=== PATIENT | female | born 1990 | race Hispanic/Latino ===

== ENCOUNTER 2021-04-07 00:10 | Emergency (ER) | payer MEDICAID, OTHER ==
[~2021-04-07] VITALS: Ht 162.6 cm; Wt 99.1 kg
[~2021-04-07 00:10] MED LIST: PREN1TAB89 PO
[2021-04-07 02:47] LABS: APPEARANCE,URINE CLEAR (CLEAR); BILIRUBIN,URINE NEGATIVE (NEGATIVE); COLOR,URINE YELLOW (YELLOW); GLUCOSE, URINE (UA) NEGATIVE (NEGATIVE); KETONES,URINE NEGATIVE (NEGATIVE); LEUKOCYTE ESTERASE ,URINE NEGATIVE (NEGATIVE); NITRATE,URINE NEGATIVE (NEGATIVE); OCCULT BLOOD,URINE NEGATIVE (NEGATIVE); PROTEIN,URINE NEGATIVE (NEGATIVE)
[2021-04-07 02:49] LABS: HCG,QUAL RESULT NEGATIVE (NEGATIVE)
[2021-04-07 02:54] LABS: BACTERIA,URINE Rare /HPF (None Seen); RBC,URINE 0-1 /HPF (0-1); SQUAMOUS EPITHELIAL CELL,UR 0-2 /HPF (0-2); WBC,URINE 0-1 /HPF (0-1)
[2021-04-07 04:42] VITALS: BP 108/66
[2021-04-07] MEDS ORDERED: IBUPROFEN 600 MG TABLET PO ONE (05:00)
[2021-04-07] MEDS ORDERED: IBUP-2070 PO (05:05)
== END 2021-04-07 05:15 | disposition home or self-care (01) ==
LOC: EDH 00:14
DX: D25.9 Leiomyoma of uterus, unspecified (principal); Z90.49 Acquired absence of other specified parts of digestive tract
CPT/HCPCS: 76856; 81001; 81025; 87486; 87797

== ENCOUNTER 2022-05-06 20:38 | Emergency (ER) | payer OTHER ==
[~2022-05-06] VITALS: Ht 162.6 cm; Wt 100.7 kg
[~2022-05-06 20:38] MED LIST changes: +IBUP-2070 PO
[2022-05-06 20:47] VITALS: BP 127/69
[2022-05-06] MEDS ORDERED: IBUPROFEN 800 MG TAB ONE (22:36)
[2022-05-06] MEDS ORDERED: IBUPROFEN 800 MG TAB PO ONE (23:00)
== END 2022-05-06 22:54 | disposition home or self-care (01) ==
LOC: EDH 20:38
DX: M25.572 Pain in left ankle and joints of left foot (principal); Z90.49 Acquired absence of other specified parts of digestive tract; Z79.1 Long term (current) use of non-steroidal anti-inflammatories (NSAID); Z79.899 Other long term (current) drug therapy
CPT/HCPCS: 73600

== ENCOUNTER 2022-11-19 20:13 | Emergency (ER) | payer OTHER ==
[~2022-11-19] VITALS: Ht 162.6 cm; Wt 99.8 kg
[2022-11-19 20:52] VITALS: BP 118/65; PULSE 78; RESP 18; O2SAT 98
[2022-11-19] MEDS ORDERED: AMOX/CLAV 875/125MG TAB PO ONE (21:00)
[2022-11-19] MEDS ORDERED: DIPH,PERTUSS(ACELL),TET VAC/PF 0.5 ML VIAL IM ONE (21:00)
[2022-11-19] MEDS ORDERED: AMOX1TAB16 PO (21:06)
[2022-11-19] MEDS ORDERED: MUPI22OI2 TP (21:06)
[2022-11-19] MEDS ORDERED: BACITRACIN 1 EACH PACKET TP ONE (21:30)
[2022-11-19] MEDS ORDERED: BACITRACIN 28.4 GM OINT TP ONE (21:30)
== END 2022-11-19 21:33 | disposition home or self-care (01) ==
LOC: EDH 20:13
DX: S81.852A Open bite, left lower leg, initial encounter (principal); Z79.899 Other long term (current) drug therapy; Z90.49 Acquired absence of other specified parts of digestive tract; Z98.890 Other specified postprocedural states; W54.0XXA Bitten by dog, initial encounter; Y93.89 Activity, other specified; Y92.89 Other specified places as the place of occurrence of the external cause; Y99.8 Other external cause status
CPT/HCPCS: 90471; 90715

== ENCOUNTER 2023-07-22 23:03 | Emergency (ER) | payer OTHER ==
[~2023-07-22] VITALS: Ht 162.6 cm; Wt 104.3 kg
[~2023-07-22 23:03] MED LIST changes: +AMOX1TAB16 PO; +MUPI22OI2 TP
[2023-07-22 23:22] VITALS: BP 115/60; PULSE 71; RESP 16; O2SAT 98
[2023-07-23] MEDS: FAMOTIDINE 20MG VIAL IV ONE (00:19)
[2023-07-23] MEDS: ONDANSETRON 4MG INJ IVP ONE (00:20)
[2023-07-23 01:34] LABS: BASOPHILS # (AUTO) 0.09 K/uL (0.00-0.20); BASOPHILS % (AUTO) 0.7 % (0.0-5.0); EOSINOPHILS # (AUTO) 0.32 K/uL (0.00-0.70); EOSINOPHILS % (AUTO) 2.7 % (0.0-8.0); HEMATOCRIT 39.9 % (36-48); IMMATURE GRANULOCYTE ABSOLUTE 0.06 K/uL (0-1); LYMPHOCYTES % (AUTO) 33.4 % (21.0-51.0); MEAN CORPUSCULAR HEMOGLOBIN 28.3 pg (27.0-33.0); MEAN CORPUSCULAR HGB CONC 31.1 g/dL (32.0-36.0); MEAN CORPUSCULAR VOLUME 91.1 fL (79-99); MONOCYTES # (AUTO) 0.8 K/uL (0.1-1.0); MONOCYTES % (AUTO) 6.9 % (3.0-13.0); NEUTROPHILS # (AUTO) 6.7 K/uL (1.8-7.7); NEUTROPHILS % (AUTO) 55.8 % (40.0-77.0); PLATELET COUNT (AUTO) 275 K/uL (130-400); RED BLOOD CELL COUNT(AUTO) 4.38 MIL/uL (4.00-5.50); WHITE BLOOD COUNT (AUTO) 12.1 K/uL (4.8-10.8)
[2023-07-23 01:45] LABS: CREATININE 0.9 mg/dL (0.5-1.0); POTASSIUM 3.7 mmol/L (3.5-5.1)
[2023-07-23 01:51] LABS: ALBUMIN 3.2 g/dL (3.5-5.0); BILIRUBIN,TOTAL 0.4 mg/dL (0.2-1.0); TOTAL PROTEIN, SERUM 7.5 g/dL (6.0-8.3)
[2023-07-23] MEDS ORDERED: FAMO-136 PO (02:18)
[2023-07-23] MEDS ORDERED: ONDA-243 PO (02:18)
[2023-07-23] MEDS: KETOROLAC 10 MG TABLET PO SCH (02:23)
[2023-07-23] MEDS: ONDANSETRON ODT 4MG TAB SL ONE (02:23)
[2023-07-23] MEDS: FAMOTIDINE 20MG TAB PO ONE (02:23)
== END 2023-07-23 02:37 | disposition home or self-care (01) ==
LOC: EDH 23:03
DX: K29.70 Gastritis, unspecified, without bleeding (principal); Z79.899 Other long term (current) drug therapy; Z90.49 Acquired absence of other specified parts of digestive tract; Z98.890 Other specified postprocedural states
CPT/HCPCS: 36415; 80053; 83690; 84703; 85025

== ENCOUNTER 2023-08-23 23:31 | Emergency (ER) | payer OTHER ==
[~2023-08-23] VITALS: Ht 152.4 cm; Wt 99.8 kg
[~2023-08-23 23:31] MED LIST changes: +FAMO-136 PO; +ONDA-243 PO
[2023-08-23 23:34] VITALS: BP 135/80; PULSE 78; RESP 18
[2023-08-24] MEDS: HYDROXYZINE 25 MG TABLET PO ONE (00:31)
[2023-08-24 00:43] LABS: BASOPHILS # (AUTO) 0.08 K/uL (0.00-0.20); BASOPHILS % (AUTO) 0.6 % (0.0-5.0); EOSINOPHILS % (AUTO) 4.8 % (0.0-8.0); HEMATOCRIT 40.5 % (36-48); IMMATURE GRANULOCYTE ABSOLUTE 0.06 K/uL (0-1); LYMPHOCYTES # (AUTO) 3.5 K/uL (1.0-4.8); LYMPHOCYTES % (AUTO) 28.2 % (21.0-51.0); MEAN CORPUSCULAR HEMOGLOBIN 28.9 pg (27.0-33.0); MEAN CORPUSCULAR HGB CONC 31.4 g/dL (32.0-36.0); MONOCYTES % (AUTO) 8.3 % (3.0-13.0); NEUTROPHILS # (AUTO) 7.2 K/uL (1.8-7.7); NEUTROPHILS % (AUTO) 57.6 % (40.0-77.0); PLATELET COUNT (AUTO) 266 K/uL (130-400); RED CELL DISTRIBUTION WIDTH 13.1 % (11.0-15.5); WHITE BLOOD COUNT (AUTO) 12.4 K/uL (4.8-10.8)
[2023-08-24 00:47] LABS: CREATININE 0.9 mg/dL (0.5-1.0); POTASSIUM 4.4 mmol/L (3.5-5.1)
[2023-08-24] MEDS ORDERED: HYDR-3421 PO (01:21)
[2023-08-24] MEDS ORDERED: MUPI15C TP (01:21)
== END 2023-08-24 01:49 | disposition home or self-care (01) ==
LOC: EDH 23:31
DX: L02.416 Cutaneous abscess of left lower limb (principal); L29.9 Pruritus, unspecified; Z79.899 Other long term (current) drug therapy; Z90.49 Acquired absence of other specified parts of digestive tract; Z98.890 Other specified postprocedural states
CPT/HCPCS: 36415; 80048; 83605; 85025; 93971

== ENCOUNTER 2023-08-31 18:57 | Emergency (ER) | payer OTHER ==
[~2023-08-31] VITALS: Ht 162.6 cm; Wt 99.8 kg
[~2023-08-31 18:57] MED LIST changes: +HYDR-3421 PO; +MUPI15C TP
[2023-08-31] MEDS ORDERED: CEPH500B PO (19:31)
[2023-08-31] MEDS ORDERED: METH4TAB3 PO (19:31)
[2023-08-31] MEDS ORDERED: DIPH25CA85 PO (19:31)
[2023-08-31] MEDS: SOLU-MEDROL 125MG VIAL IM ONE (20:16)
[2023-08-31] MEDS: DiphenhydrAMINE HCL 50 MG/ML VIAL IM ONE (20:16)
[2023-08-31 20:33] VITALS: BP 128/77; PULSE 82; RESP 20; O2SAT 99
== END 2023-08-31 20:34 | disposition home or self-care (01) ==
LOC: EDH 18:57
DX: L03.116 Cellulitis of left lower limb (principal); L02.416 Cutaneous abscess of left lower limb; Z79.899 Other long term (current) drug therapy; Z98.890 Other specified postprocedural states; Z90.49 Acquired absence of other specified parts of digestive tract
CPT/HCPCS: 99284; 96372 ×2; J1200; J2919

== ENCOUNTER 2023-09-26 18:05 | Emergency (ER) | payer SELFPAY ==
[~2023-09-26] VITALS: Ht 162.6 cm; Wt 104.3 kg
[~2023-09-26 18:05] MED LIST changes: +CEPH500B PO; +DIPH25CA85 PO; +METH4TAB3 PO
[2023-09-26 20:25] LABS: BASOPHILS # (AUTO) 0.05 K/uL (0.00-0.20); BASOPHILS % (AUTO) 0.4 % (0.0-5.0); EOSINOPHILS % (AUTO) 5.1 % (0.0-8.0); HEMATOCRIT 39.1 % (36-48); IMMATURE GRANULOCYTE ABSOLUTE 0.05 K/uL (0-1); LYMPHOCYTES # (AUTO) 1.8 K/uL (1.0-4.8); MEAN CORPUSCULAR HGB CONC 31.7 g/dL (32.0-36.0); MEAN CORPUSCULAR VOLUME 91.6 fL (79-99); MONOCYTES # (AUTO) 0.8 K/uL (0.1-1.0); MONOCYTES % (AUTO) 5.5 % (3.0-13.0); NEUTROPHILS # (AUTO) 10.4 K/uL (1.8-7.7); NEUTROPHILS % (AUTO) 75.6 % (40.0-77.0); PLATELET COUNT (AUTO) 257 K/uL (130-400); RED BLOOD CELL COUNT(AUTO) 4.27 MIL/uL (4.00-5.50); RED CELL DISTRIBUTION WIDTH 13.3 % (11.0-15.5); WHITE BLOOD COUNT (AUTO) 13.7 K/uL (4.8-10.8)
[2023-09-26 20:35] LABS: CREATININE 0.8 mg/dL (0.5-1.0); POTASSIUM 3.7 mmol/L (3.5-5.1)
[2023-09-26 20:40] LABS: ALBUMIN 3.4 g/dL (3.5-5.0); BILIRUBIN,TOTAL 0.3 mg/dL (0.2-1.0); TOTAL PROTEIN, SERUM 7.9 g/dL (6.0-8.3)
[2023-09-26] MEDS: SOLU-MEDROL 125MG VIAL IVP ONE (21:16)
[2023-09-26] MEDS: 0.9%NACL 1000ML 3,129 ML IV ONE (21:16)
[2023-09-26] MEDS: DiphenhydrAMINE HCL 50 MG/ML VIAL IV ONE (21:16)
[2023-09-26] MEDS: ZOSYN 3.375GM +NS 50ML IV ONE (21:16)
[2023-09-26] MEDS: FAMOTIDINE 20MG VIAL IV ONE (21:17)
[2023-09-26 23:01] LABS: APPEARANCE,URINE CLEAR (CLEAR); BILIRUBIN,URINE NEGATIVE (NEGATIVE); COLOR,URINE COLORLESS (YELLOW); GLUCOSE, URINE (UA) NEGATIVE (NEGATIVE); KETONES,URINE NEGATIVE (NEGATIVE); LEUKOCYTE ESTERASE ,URINE NEGATIVE Leu/uL (NEGATIVE); NITRATE,URINE NEGATIVE (NEGATIVE); OCCULT BLOOD,URINE NEGATIVE (NEGATIVE); PH,URINE 6.5 (5.0-8.0); PROTEIN,URINE NEGATIVE (NEGATIVE); UROBILINOGEN,URINE 0.2 mg/dL (0.2-1.0)
[2023-09-26 23:03] LABS: ADD UA MICROSCOPIC NO
[2023-09-26 23:46] VITALS: BP 129/75; PULSE 77; RESP 18; O2SAT 100
== END 2023-09-26 23:39 | disposition left against medical advice (07) ==
LOC: EDH 18:05
DX: R21 Rash and other nonspecific skin eruption (principal); M79.662 Pain in left lower leg; Z79.899 Other long term (current) drug therapy; Z90.49 Acquired absence of other specified parts of digestive tract; Z98.890 Other specified postprocedural states
CPT/HCPCS: 99285; 96374; 96375; 93971; 96361; 80053; 84703; 85025; 87040; 87070; 87076; 87086 ×2; 87186 ×2; 83605; 81003; 36415; 73630; 73590; 84145; J1200; J3490; J7030; J2919; J2543